=== PATIENT | female | born 1965 | race Caucasian/White ===

== ENCOUNTER 2017-08-09 08:08 | Emergency (ER) | payer SELFPAY ==
--- NOTE | 2017-08-09 08:44 | ER Document Report ---
HPI - HPI Patient complains to provider of: stumbled on brick steps Onset: Just prior to arrival Onset/Duration: Sudden Pain Level: 3 Context: 52-year-old female stumbled on brick front steps and falling onto her right knee and twisting her left knee the only place she has pain is her anterior distal tibia and proximal tibia. She wants to make sure they are not broken. Needs work note. Associated Symptoms: None Exacerbated by: Movement Relieved by: Denies Similar symptoms previously: No Recently seen / treated by doctor: No - ROS ROS below otherwise negative: Yes Systems Reviewed and Negative: Yes All other systems reviewed and negative - REPRODUCTIVE Reproductive: DENIES: : - DERM Skin Color: Normal Past Medical History - General Information source: Patient - Social History Smoking Status: Unknown if Ever Smoked Frequency of alcohol use: None Drug Abuse: None Lives with: Family Family History: Reviewed & Not Pertinent - Past Medical History Cardiac Medical History: Reports: Hx Coronary Artery Disease, Hx Heart Attack - 01/2011, Hx Hypertension Endocrine Medical History: Reports: Hx Diabetes Mellitus Type 2 Renal/ Medical History: Denies: Hx Peritoneal Dialysis Musculoskeltal Medical History: Reports Hx Arthritis - Degenerative, Rt hip Skin Medical History: Denies Hx MRSA Past Surgical History: Reports: Hx Cardiac Catheterization - Immunizations Hx Diphtheria, Pertussis, Tetanus Vaccination: No - unsure Vertical Provider Document - CONSTITUTIONAL Agree With Documented VS: Yes Exam Limitations: No Limitations General Appearance: No Apparent Distress - INFECTION CONTROL TRAVEL OUTSIDE OF THE [place] IN LAST 30 DAYS: No - HEENT HEENT: Normocephalic - NECK Neck: Supple - RESPIRATORY O2 Sat by Pulse Oximetry: 97 - MUSCULOSKELETAL/EXTREMETIES Musculoskeletal/Extremeties: MAEW, FROM, Tender - anterior proximal and distal tibia abrasions, No Edema - NEURO Level of Consciousness: Awake, Alert Motor/Sensory: No Motor Deficit, No Sensory Deficit - DERM Integumentary: Warm, Dry Notes: see above Course - Re-evaluation Re-evalutation: 08/09/17 15:05 late entyr: xray negative. - Vital Signs Vital signs: Temp Pulse Resp BP Pulse Ox 97.4 F 79 20 145/78 H 97 08/09/17 08:11 08/09/17 08:11 08/09/17 08:11 08/09/17 08:11 08/09/17 08:11 Discharge - Discharge Clinical Impression: distal tibia abrasion, proximal right tibia contusion abrasion Condition: Good Disposition: HOME, SELF-CARE Instructions: Abrasions ([facility]), Acetaminophen, Antibiotic Ointment Protection ( [facility]), Contusion ([facility]) Additional Instructions: keep the abrasions clean bacitracin to er any concerns Please complete the patient satisfaction survey if you get one, and return it.. If you do not receive a survey, then you can go to the [facility] website, [email or web address] and place your comments about your very good care. Thank you very much. It was a pleasure being your medical provider today. Forms: Return to Work
[2017-08-09] MEDS ORDERED: ACETAMINOPHEN 325 MG TABLET PO ONE (09:26)
--- NOTE | 2017-08-09 10:17 | RADIOLOGY REPORT (SQ) ---
EXAM DESCRIPTION: TIBIA FIBULA RIGHT COMPLETED DATE/TIME: 08/09/2017 10:09 am REASON FOR STUDY: injury on brick COMPARISON: None. NUMBER OF VIEWS: Two views. TECHNIQUE: Two radiographic images acquired of the right tibia and fibula to include the knee and an kle in at least one projection. LIMITATIONS: None. FINDINGS: MINERALIZATION: Normal. BONES: No acute fracture or dislocation. No worrisome bone lesions. SOFT TISSUES: No metallic foreign bodies. OTHER: No other significant finding. IMPRESSION: No acute fracture identified. TECHNICAL DOCUMENTATION: JOB ID: [id number] [employer]- All Rights Reserved
[2017-08-09 11:17] VITALS: BP 128/76
== END 2017-08-09 11:00 | disposition home or self-care (01) ==
LOC: ER 08:08
DX: S80.811A Abrasion, right lower leg, initial encounter (principal); S80.812A Abrasion, left lower leg, initial encounter; W10.9XXA Fall (on) (from) unspecified stairs and steps, initial encounter; I25.10 Atherosclerotic heart disease of native coronary artery without angina pectoris; I10 Essential (primary) hypertension; E11.9 Type 2 diabetes mellitus without complications; I25.2 Old myocardial infarction
CPT/HCPCS: 99283

== ENCOUNTER 2019-07-23 23:59 | Emergency (ER) | payer SELFPAY ==
[2019-07-24 04:27] VITALS: BP 130/78
--- NOTE | 2019-07-24 06:06 | ER Document Report ---
Entered by VIRAL FELIPE SCRIBE 07/24/19 0416 Acting as scribe for:YURI ANAND DO ED Extremity Problem, Lower - General Chief Complaint: Leg Pain Stated Complaint: LEFT LEG PAIN Time Seen by Provider: 07/24/19 04:02 Primary Care Provider: ONUR MARTINEZ MD [Primary Care Provider] - Follow up in 3-5 days Mode of Arrival: Ambulatory Information source: Patient Notes: Patient is a 54-year-old female who presents to the emergency department today with complaints of left lower extremity swelling and pain. Patient states she has had a DVT in the past. Patient is currently on Plavix for her coronary artery stent. Patient states that she noticed pain first yesterday after waking up from a nap and the swelling shortly after. Patient denies any trauma or injury to this leg. Patient denies any shortness of breath or chest pain. TRAVEL OUTSIDE OF THE [place] IN LAST 30 DAYS: No - Related Data Allergies/Adverse Reactions: No Known Allergies Allergy (Verified 07/24/19 01:28) Past Medical History - General Information source: Patient - Social History Smoking Status: Never Smoker Cigarette use (# per day): No Frequency of alcohol use: None Drug Abuse: None Lives with: Family Family History: Reviewed & Not Pertinent Patient has suicidal ideation: No Patient has homicidal ideation: No - Past Medical History Cardiac Medical History: Reports: Hx Coronary Artery Disease, Hx DVT, Hx Heart Attack - 01/2011, Hx Hypertension Endocrine Medical History: Reports: Hx Diabetes Mellitus Type 2 Musculoskeletal Medical History: Reports Hx Arthritis - Degenerative, Rt hip Past Surgical History: Reports: Hx Cardiac Catheterization - Immunizations Hx Diphtheria, Pertussis, Tetanus Vaccination: No - unsure Review of Systems - Review of Systems Constitutional: No symptoms reported EENT: No symptoms reported Cardiovascular: denies: Chest pain Respiratory: denies: Short of breath Gastrointestinal: No symptoms reported Genitourinary: No symptoms reported Female Genitourinary: No symptoms reported Musculoskeletal: See HPI, Leg swelling - left Skin: No symptoms reported Hematologic/Lymphatic: No symptoms reported Neurological/Psychological: No symptoms reported -: Yes All other systems reviewed and negative Physical Exam - Vital signs Vitals: Temp Pulse Resp BP Pulse Ox 97.8 F 78 19 138/80 H 96 07/24/19 00:16 07/24/19 00:16 07/24/19 00:16 07/24/19 00:16 07/24/19 00:16 Interpretation: Normal - General General appearance: Appears well, Alert - HEENT Head: Normocephalic, Atraumatic Eyes: Normal Pupils: PERRL - Respiratory Respiratory status: No respiratory distress Chest status: Nontender Breath sounds: Normal Chest palpation: Normal - Cardiovascular Rhythm: Regular Heart sounds: Normal auscultation Murmur: No - Abdominal Inspection: Normal Distension: No distension Bowel sounds: Normal Tenderness: Nontender Organomegaly: No organomegaly - Back Back: Normal, Nontender - Extremities General upper extremity: Normal inspection, Nontender, Normal color, Normal ROM, Normal temperature General lower extremity: Nontender, Tender, Normal color, Normal ROM, Normal temperature, Normal weight bearing. No: Dyana's sign Shoulder: Normal Arm: Normal Elbow: Normal Hip: Normal Thigh: Normal Knee: Normal Calf: Other - Varicose veins throughout. Area over left anteromedial leg with mild erythema and tenderness to palpation. No evidence for superficial phlebitis. No increased swelling compared to right. - Neurological Neuro grossly intact: Yes Cognition: Normal Orientation: AAOx4 [place] Coma Scale Eye Opening: Spontaneous Hector Coma Scale Verbal: Oriented [place] Coma Scale Motor: Obeys Commands Hector Coma Scale Total: 15 Speech: Normal Motor strength normal: LUE, RUE, LLE, RLE Sensory: Normal - Psychological Associated symptoms: Normal affect, Normal mood - Skin Skin Temperature: Warm Skin Moisture: Dry Skin Color: Normal Course - Re-evaluation Re-evalutation: 07/24/19 Patient is a 54-year-old female with history of DVT who comes in complaining of left leg pain and swelling with concern for DVT. Patient takes Plavix for history of cardiac stents. Unlikely DVT but patient will have Doppler study later today. She is to call for appointment. Patient is agreeable to this plan although upset about the wait time to be told this. Stable for discharge. Return if further concerns. - Vital Signs Vital signs: Temp Pulse Resp BP Pulse Ox 98.0 F 76 18 130/78 H 99 07/24/19 04:21 07/24/19 04:21 07/24/19 04:21 07/24/19 04:21 07/24/19 04:21 Discharge - Discharge Clinical Impression: Leg pain, left Condition: Stable Disposition: HOME, SELF-CARE Instructions: Leg Pain Nonspecific ([facility]) Forms: Follow-Up Radiology Testing, Return to Work Referrals: ONUR MARTINEZ MD [Primary Care Provider] - Follow up in 3-5 days I personally performed the services described in the documentation, reviewed and edited the documentation which was dictated to the scribe in my presence, and it accurately records my words and actions.
== END 2019-07-24 04:25 | disposition home or self-care (01) ==
LOC: ER 23:59
DX: M79.605 Pain in left leg (principal); M79.89 Other specified soft tissue disorders; Z79.02 Long term (current) use of antithrombotics/antiplatelets; I25.10 Atherosclerotic heart disease of native coronary artery without angina pectoris; I10 Essential (primary) hypertension; E11.9 Type 2 diabetes mellitus without complications
CPT/HCPCS: 99283

== ENCOUNTER → 2019-07-24 | Outpatient (CLI) | payer SELFPAY ==
--- NOTE | 2019-07-24 10:36 | XCELERA REPORT ---
[address] [place] [facility] [id number] Lower Extremity Venous Evaluation Procedure: Color flow and duplex imaging of the veins of the left lower extremity as well as the right Common Femoral vein. Right Sided Venous Evaluation The right common femoral vein is fully compressible. Spontaneous and phasic flow is present in the right common femoral vein. Left Sided Venous Evaluation Lucent enlarged veins in the distal Greater Saphenous vein. No Colour flow. Otherwise normal vessel filling wall to wall, compression and augmentation as well as Colour flow down to the infrageniculate veins. Interpretation Summary No duplex evidence of DVT or obstruction in the left lower extremity nor in the right Common Femoral vein. Superficial phlebitis, acute, in the left Greater Saphenus vein. Name: DEDE HINES Age: 54 yrs Gender: Female : 1965 Patient Status: Outpatient Patient Location: [facility] Study Date: 07/24/2019 09:27 AM Reason For Study: LLE SWELLING Ordering Physician: FORREST COLLAZO Performed By: Kelly Pierre : FORREST COLLAZO > Steven Doyle
== END ==
LOC: RAD 09:20
PROVIDERS: ATTEND Nurse Practitioner Family
DX: M79.605 Pain in left leg (principal); M79.89 Other specified soft tissue disorders
CPT/HCPCS: 93971